=== PATIENT | female | born 1965 | race Caucasian/White ===

== ENCOUNTER 2016-07-14 09:23 | Inpatient (IN) | payer MEDICAID ==
[~2016-07-14] VITALS: Ht 167.6 cm; Wt 72.4 kg
[2016-07-14 10:40] LABS: BASOPHIL % 1.1 % (0-2); CALCIUM 8.3 mg/dL (8.5-10.1); CARBON DIOXIDE 24.9 mmol/L (21-32); CHLORIDE SERUM 108 mmol/L (98-107); CREATININE SERUM 0.5 mg/dL (0.6-1.0); GFR1 > 60 mL/min; GLUCOSE SERUM 104 mg/dL (74-106); PLATELET COUNT 253 x10^3mcL (130-400); POTASSIUM SERUM 3.9 mmol/L (3.5-5.1); SODIUM SERUM 143 mmol/L (136-145)
[2016-07-14 10:44] LABS: ALBUMIN 3.6 g/dL (3.4-5.0); ALKALINE PHOSPHATASE 72 U/L (46-116); ALT/SGPT 39 U/L (14-59); AST/SGOT 38 U/L (15-37); BILIRUBIN TOTAL 0.5 mg/dL (0.20-1.00); TOTAL PROTEIN, SERUM 7.1 g/dL (6.4-8.2)
[2016-07-14 10:51] LABS: RED CELL DISTRIBUTION WIDTH 21.1 % (11.5-14.5)
[2016-07-14 12:18] LABS: IRON 11 ug/dL (50-170); TOTAL IRON BINDING CAPACITY 499 ug/dL (250-450)
[2016-07-14 12:29] LABS: RED BLOOD CELLS 3.33 M/mm3 (4.10-5.10)
[2016-07-14 13:04] LABS: rbc morphology (normal/abnorm) ABNORMAL (NORMAL)
[2016-07-14 13:20] VITALS: BP 118/51
[2016-07-14] MEDS ORDERED: FERROUS SULFAT325 M2 PO (14:07)
[2016-07-14 14:50] LABS: BASOPHIL % 0.4 % (0-2); PLATELET COUNT 237 x10^3mcL (130-400)
[2016-07-14 14:54] LABS: RED CELL DISTRIBUTION WIDTH 21.8 % (11.5-14.5)
[2016-07-14 16:56] VITALS: BP 115/64
[2016-07-14 21:59] VITALS: BP 129/68
[2016-07-15 05:59] VITALS: BP 113/63
[2016-07-15 06:45] LABS: CALCIUM 7.9 mg/dL (8.5-10.1); CARBON DIOXIDE 23.8 mmol/L (21-32); CHLORIDE SERUM 111 mmol/L (98-107); CREATININE SERUM 0.4 mg/dL (0.6-1.0); GFR1 > 60 mL/min; GLUCOSE SERUM 83 mg/dL (74-106); POTASSIUM SERUM 3.7 mmol/L (3.5-5.1); SODIUM SERUM 145 mmol/L (136-145)
[2016-07-15 07:42] LABS: BASOPHIL % 0.2 % (0-2); PLATELET COUNT 225 x10^3mcL (130-400)
[2016-07-15 07:44] LABS: RED CELL DISTRIBUTION WIDTH 27.7 % (11.5-14.5)
[2016-07-15 07:48] LABS: rbc morphology (normal/abnorm) ABNORMAL (NORMAL)
[2016-07-15 08:27] LABS: ovalocyte/elliptocyte 1+; tear drop cell (dacryocyte) 1+
[2016-07-15 09:35] VITALS: BP 129/71
[2016-07-15 13:47] VITALS: BP 123/58
[2016-07-15 17:59] VITALS: BP 114/59
[2016-07-15 18:31] LABS: PLATELET COUNT 240 x10^3mcL (130-400)
[2016-07-15 18:46] LABS: RED CELL DISTRIBUTION WIDTH 28.3 % (11.5-14.5)
[2016-07-15 19:08] LABS: BAND NEUTROPHIL 0 % (0-10); BASOPHIL 0 % (0-2); MONOCYTE 8 % (0-7); SEGMENTED NEUTROPHILS 78 % (37-75)
[2016-07-15 19:09] LABS: PLATELET MORPHOLOGY PLATELETS NORMAL; rbc morphology (normal/abnorm) ABNORMAL (NORMAL)
[2016-07-16 06:02] VITALS: BP 126/62
[2016-07-16 06:39] LABS: CALCIUM 8.2 mg/dL (8.5-10.1); CARBON DIOXIDE 27.7 mmol/L (21-32); CHLORIDE SERUM 108 mmol/L (98-107); CREATININE SERUM 0.5 mg/dL (0.6-1.0); GFR1 > 60 mL/min; GLUCOSE SERUM 86 mg/dL (74-106); MAGNESIUM 2.2 mg/dL (1.8-2.4); PHOSPHOROUS 3.4 mg/dL (2.5-4.9); POTASSIUM SERUM 3.6 mmol/L (3.5-5.1); SODIUM SERUM 145 mmol/L (136-145)
[2016-07-16 07:58] LABS: BASOPHIL % 0.8 % (0-2); PLATELET COUNT 274 x10^3mcL (130-400)
[2016-07-16 08:02] LABS: RED CELL DISTRIBUTION WIDTH 29.5 % (11.5-14.5)
[2016-07-16 08:55] LABS: ovalocyte/elliptocyte 1+; rbc morphology (normal/abnorm) ABNORMAL (NORMAL); tear drop cell (dacryocyte) 1+
[2016-07-16 09:00] VITALS: BP 126/78
[2016-07-16] MEDS ORDERED: FERROUS SULFAT325 M2 PO (09:48)
[2016-07-16] MEDS ORDERED: VITC PO (09:49)
[2016-07-16] MEDS ORDERED: COL100 PO (09:49)
[2016-07-16 14:06] VITALS: BP 126/78
== END 2016-07-16 18:06 | disposition home or self-care (01) | DRG 532 ==
LOC: ED 09:23 → DU 11:24 → MU 07-16 05:39
PROVIDERS: Emergency Medicine; Family Medicine; ADMIT Family Medicine
PROC: 30233N1 Transfusion of Nonautologous Red Blood Cells into Peripheral Vein, Percutaneous Approach (ICD-10-PCS; principal; 2016-07-14)
DX: D25.9 Leiomyoma of uterus, unspecified (principal); N17.0 Acute kidney failure with tubular necrosis; D62 Acute posthemorrhagic anemia; N92.1 Excessive and frequent menstruation with irregular cycle; D50.9 Iron deficiency anemia, unspecified; Z98.51 Tubal ligation status
CPT/HCPCS: 82962; 83880; J1410; J7030; J7040; J7050; P9016; Q0092; Q0163

== ENCOUNTER 2017-06-30 12:42 | Emergency (ER) | payer MEDICAID ==
[~2017-06-30] VITALS: Ht 165.1 cm; Wt 85.0 kg
[~2017-06-30 12:42] MED LIST: COL100 PO; FERROUS SULFAT325 M2 PO; VITC PO
[2017-06-30 13:27] LABS: BASOPHIL % 0.4 % (0-2); PLATELET COUNT 244 x10^3mcL (130-400); RED CELL DISTRIBUTION WIDTH 15.1 % (11.5-14.5)
[2017-06-30 13:36] LABS: CALCIUM 8.5 mg/dL (8.5-10.1); CARBON DIOXIDE 28.5 mmol/L (21-32); CHLORIDE SERUM 104 mmol/L (98-107); CREATININE SERUM 0.5 mg/dL (0.6-1.0); GFR1 > 60 mL/min; GLUCOSE SERUM 95 mg/dL (74-106); POTASSIUM SERUM 4.1 mmol/L (3.5-5.1); SODIUM SERUM 139 mmol/L (136-145)
[2017-06-30 13:40] LABS: ALBUMIN 3.8 g/dL (3.4-5.0); ALKALINE PHOSPHATASE 92 U/L (46-116); ALT/SGPT 65 U/L (14-59); AMYLASE 38 U/L (25-115); AST/SGOT 40 U/L (15-37); BILIRUBIN TOTAL 0.5 mg/dL (0.20-1.00); LIPASE 146 IU/L (73-393); TOTAL PROTEIN, SERUM 7.6 g/dL (6.4-8.2)
[2017-06-30 15:10] VITALS: BP 137/72
== END 2017-06-30 15:11 | disposition home or self-care (01) ==
LOC: ED 12:42
PROVIDERS: Emergency Medicine
DX: M54.12 Radiculopathy, cervical region (principal); M62.838 Other muscle spasm; E66.9 Obesity, unspecified
CPT/HCPCS: 36415; J1100; J1885

== ENCOUNTER 2018-01-20 14:22 | Emergency (ER) | payer SELFPAY ==
[~2018-01-20] VITALS: Ht 165.1 cm; Wt 84.4 kg
[2018-01-20 14:27] VITALS: Ht 165.1 cm; Wt 84.4 kg
[2018-01-20 17:12] LABS: BASOPHIL % 1.1 % (0-2); PLATELET COUNT 346 x10^3mcL (130-400)
[2018-01-20 17:14] LABS: RED CELL DISTRIBUTION WIDTH 18.5 % (11.5-14.5)
[2018-01-20 17:24] LABS: CALCIUM 8.8 mg/dL (8.5-10.1); CARBON DIOXIDE 22.1 mmol/L (21-32); CHLORIDE SERUM 107 mmol/L (98-107); CREATININE SERUM 0.5 mg/dL (0.6-1.0); GFR1 > 60 mL/min; GLUCOSE SERUM 127 mg/dL (74-106); POTASSIUM SERUM 3.6 mmol/L (3.5-5.1); SODIUM SERUM 142 mmol/L (136-145)
[2018-01-20 17:28] LABS: ALBUMIN 4.3 g/dL (3.4-5.0); ALKALINE PHOSPHATASE 101 U/L (46-116); ALT/SGPT 30 U/L (14-59); AST/SGOT 18 U/L (15-37); BILIRUBIN TOTAL 0.28 mg/dL (0.20-1.00); TOTAL PROTEIN, SERUM 8.8 g/dL (6.4-8.2)
[2018-01-20 19:17] VITALS: BP 131/71
== END 2018-01-20 19:17 | disposition home or self-care (01) ==
LOC: ED 14:22
PROVIDERS: Specialist
DX: H81.10 Benign paroxysmal vertigo, unspecified ear (principal); Z86.2 Personal history of diseases of the blood and blood-forming organs and certain disorders involving the immune mechanism
CPT/HCPCS: J7030; J8597